=== PATIENT | female | born 1990 | race Caucasian/White ===

== ENCOUNTER 2018-03-27 15:45 | Inpatient (IN) | payer OTHER ==
[2018-03-27 17:14] LABS: HEMATOCRIT 33.6 % (36.0-47.0); HEMOGLOBIN 11.2 g/dl (12.0-15.5); MEAN CORPUSCULAR HEMOGLOBIN 31.3 pg (27.0-33.0); MEAN CORPUSCULAR HGB CONC 33.3 g/dl (32.0-36.5); MEAN CORPUSCULAR VOLUME 93.9 fl (80.0-96.0); PLATELET COUNT, AUTOMATED 190 10^3/uL (150-450); RED BLOOD COUNT 3.58 10^6/uL (4.00-5.40); RED CELL DISTRIBUTION WIDTH 15.6 % (11.5-14.5); WHITE BLOOD COUNT 9.3 10^3/uL (4.0-10.0)
[2018-03-27] MEDS: miSOPROStol 50 MCG 1/2 TAB (S0191) PO ×2 (17:24→21:45)
[2018-03-27] MEDS: ACETAMINOPHEN 325 MG TAB PO (17:25)
[2018-03-27 17:36] LABS: ALT/SGPT 15 U/L (12-78); AST/SGOT 21 U/L (7-37); BILIRUBIN,TOTAL 0.2 MG/DL (0.2-1.0); CREATININE FOR GFR 0.69 MG/DL (0.55-1.30); GLOMERULAR FILTRATION RATE > 60.0 (>60); LDH LACTATE DEHYDROGENASE 234 U/L (84-246)
[2018-03-27 17:40] LABS: CREATININE,RANDOM URINE 22.5 MG/DL
[2018-03-27 17:40] LABS: TOTAL PROTEIN,RANDOM URINE 62.2 MG/DL (0.0-12.0)
[2018-03-27] MEDS ORDERED: zolPIDEM TARTRATE 10MG TAB PO (21:00)
[2018-03-28] MEDS ORDERED: FENTANYL 2MCG/ML ROPIVACAINE 0.2% IN 0.9% NACL 200ML IVBAG As Ordered (10:16)
[2018-03-28 10:39] LABS: HEMATOCRIT 34.3 % (36.0-47.0); HEMOGLOBIN 11.1 g/dl (12.0-15.5); MEAN CORPUSCULAR HEMOGLOBIN 30.3 pg (27.0-33.0); MEAN CORPUSCULAR HGB CONC 32.4 g/dl (32.0-36.5); MEAN CORPUSCULAR VOLUME 93.7 fl (80.0-96.0); PLATELET COUNT, AUTOMATED 171 10^3/uL (150-450); RED BLOOD COUNT 3.66 10^6/uL (4.00-5.40); RED CELL DISTRIBUTION WIDTH 15.9 % (11.5-14.5)
[2018-03-28] MEDS: LR 1,000 ML IV ×3 (10:39→21:45)
[2018-03-28] MEDS ORDERED: NALOXONE INJ 0.4 MG/1 ML VIAL (J2310) IV ×3 (11:30→21:14)
[2018-03-28] MEDS ORDERED: LACTATED RINGER'S 1000 ML IV (11:30)
[2018-03-28] MEDS ORDERED: FENTANYL/ROPIVACAINE/NACL BAG 200 ML EPIDURAL (11:30)
[2018-03-28] MEDS ORDERED: EPIDURAL/PCA KEYS XX (11:30)
[2018-03-28] MEDS ORDERED: diphenhydrAMINE INJ 50MG/ML VIAL (J1200) IV (11:30)
[2018-03-28] MEDS ORDERED: REFRIGERATOR IV KEYS XX (11:30)
[2018-03-28] MEDS ORDERED: ePHEDrine SULFATE 25 MG/5 ML(5MG/ML) SYRINGE IV (11:30)
[2018-03-28] MEDS: EPIDURAL COMMENT XX (11:35)
[2018-03-28] MEDS: OXYTOCIN DRIP 30 UNITS in APPROPRIATE DILUENT 1 EA IV ×2 (11:37→21:19)
[2018-03-28] MEDS: ONDANSETRON 4MG/2ML VIAL (J2405) IV (15:53)
[2018-03-28] MEDS ORDERED: AZITHROMYCIN INJ 500 MG, VIAL MATE ADAPTER 1 EACH in D5W 250 ML IV (19:30)
[2018-03-28] MEDS ORDERED: BICITRA 30ML SOLN UDC PO (19:45)
[2018-03-28] MEDS ORDERED: ONDANSETRON 4MG/2ML VIAL (J2405) As Ordered (20:26)
[2018-03-28] MEDS ORDERED: MORPHINE PRES-FREE INJ 10 MG/10 ML VIAL (J2274) As Ordered (20:26)
[2018-03-28] MEDS ORDERED: OXYTOCIN INJ 10 UNITS/ML VIAL (J2590) As Ordered (20:26)
[2018-03-28] MEDS ORDERED: dexameTHASONE 4 MG/ML 1ML VIAL (J1100) As Ordered (20:26)
[2018-03-28] MEDS ORDERED: LIDOCAINE 2% W/EPIN INJ 20ML **PRES FREE As Ordered (20:26)
[2018-03-28] MEDS ORDERED: KETOROLAC 60 MG/2 ML VIAL (J1885) As Ordered (20:26)
[2018-03-28] MEDS ORDERED: SODIUM BICARBONATE 8.4% INJ 50 ML SYRINGE As Ordered (20:26)
[2018-03-28 20:39] LABS: CORD GAS ABE V -10.3; CORD GAS HCO3 V 16.2 MEQ/L; CORD GAS O2 SAT V 47.9 %; CORD GAS PCO2 V 38.2 mmHg; CORD GAS PH V 7.244 UNITS; CORD GAS PO2 V 24.4 mmHg; CORD GAS SBC V 15.4 MEQ/L; CORD GAS TCO2 V 17.3 MEQ/L
[2018-03-28] MEDS ORDERED: METOCLOPRAMIDE INJ 10MG/2ML VIAL (J2765) IV (21:14)
[2018-03-28] MEDS ORDERED: NALBUPHINE HCL 10 MG/ML AMP (J2300) IV ×2 (21:14→21:45)
[2018-03-28] MEDS ORDERED: ONDANSETRON 4MG/2ML VIAL (J2405) IV ×3 (21:14→21:45)
[2018-03-28] MEDS ORDERED: PERCOCET 5MG/325MG TAB PO ×2 (21:30)
[2018-03-28] MEDS ORDERED: DOCUSATE SODIUM 100 MG CAP PO (21:30)
[2018-03-28] MEDS ORDERED: fentaNYL 100 MCG/2 ML INJECTION (J3010) IV (21:45)
[2018-03-29 00:42] LABS: HBSAG L&D NEGATIVE (NEGATIVE)
[2018-03-29] MEDS: KETOROLAC 30 MG/ML VIAL (J1885) IV ×2 (03:18→08:51)
[2018-03-29] MEDS: RHOGAM 300 MCG (1500 IU) INJ (J2790) IM (07:02)
[2018-03-29] MEDS: MEASLES,MUMPS,RUBELLA VACCINE INJ (MMR-II) (90707) SC (07:02)
[2018-03-29 07:58] LABS: HEMATOCRIT 29.9 % (36.0-47.0); HEMOGLOBIN 9.8 g/dl (12.0-15.5); MEAN CORPUSCULAR HEMOGLOBIN 31.3 pg (27.0-33.0); MEAN CORPUSCULAR HGB CONC 32.8 g/dl (32.0-36.5); MEAN CORPUSCULAR VOLUME 95.5 fl (80.0-96.0); PLATELET COUNT, AUTOMATED 181 10^3/uL (150-450); RED BLOOD COUNT 3.13 10^6/uL (4.00-5.40); RED CELL DISTRIBUTION WIDTH 16.4 % (11.5-14.5); WHITE BLOOD COUNT 14.1 10^3/uL (4.0-10.0)
[2018-03-29] MEDS: PRENATAL VITAMINS CHEWABLE TABLET PO (08:51)
[2018-03-29] MEDS ORDERED: IBUPROFEN 800 MG TAB As Ordered (14:55)
[2018-03-29] MEDS: IBUPROFEN 800 MG TAB PO ×2 (15:00→23:41)
[2018-03-29] MEDS ORDERED: PILL CRUSHER/CUTTER 1 EACH XX (15:00)
[2018-03-30] MEDS: PRENATAL VITAMINS CHEWABLE TABLET PO (07:48)
[2018-03-30] MEDS: IBUPROFEN 800 MG TAB PO ×3 (07:48→23:51)
[2018-03-31] MEDS: IBUPROFEN 800 MG TAB PO (06:47)
[2018-03-31] MEDS: PRENATAL VITAMINS CHEWABLE TABLET PO (08:37)
== END 2018-03-31 12:25 | disposition home or self-care (01) | DRG 773 ==
LOC: M LDI 15:45 → M OBS 03-28 23:05
PROC: 10D00Z1 Extraction of Products of Conception, Low, Open Approach (ICD-10-PCS; principal; 2018-03-28 19:50)
PROC: 3E0DXGC Introduction of Other Therapeutic Substance into Mouth and Pharynx, External Approach (ICD-10-PCS; 2018-03-28 19:50)
DX: O14.94 Unspecified pre-eclampsia, complicating childbirth (principal); Z37.0 Single live birth; Z3A.37 37 weeks gestation of pregnancy; O32.4XX0 Maternal care for high head at term, not applicable or unspecified

== ENCOUNTER → 2019-05-10 | Outpatient (CLI) | payer OTHER ==
[~2019-05-10] MED LIST: COLA100C5 PO; IBUP-1114 PO; LEVOTAB10 PO; OXYC1TAB23 PO; PRENTAB9 PO; TUMS500C PO
== END ==
LOC: M LAB 10:06
PROVIDERS: ATTEND Nurse Practitioner Women's Health
DX: L50.8 Other urticaria (principal); L29.9 Pruritus, unspecified

== ENCOUNTER → 2019-05-24 | Outpatient (CLI) | payer OTHER ==
[2019-05-24 10:04] LABS: BASO % 0.4 % (0.0-1.0); EOS # 0.1 10^3/uL (0.0-0.5); HEMATOCRIT 42.5 % (36.0-47.0); HEMOGLOBIN 13.9 g/dl (12.0-15.5); LYMPH # 2.1 10^3/uL (1.5-5.0); LYMPH % 31.1 % (24.0-44.0); MEAN CORPUSCULAR HEMOGLOBIN 30.6 pg (27.0-33.0); MEAN CORPUSCULAR HGB CONC 32.7 g/dl (32.0-36.5); MEAN CORPUSCULAR VOLUME 93.6 fl (80.0-96.0); MONO # 0.4 10^3/uL (0.0-0.8); MONO % 5.6 % (0.0-5.0); NEUTROPHILS # 4.1 10^3/uL (1.5-8.5); NEUTROPHILS % 61.6 % (36.0-66.0); PLATELET COUNT, AUTOMATED 306 10^3/uL (150-450); RED BLOOD COUNT 4.54 10^6/uL (4.00-5.40); WHITE BLOOD COUNT 6.7 10^3/uL (4.0-10.0)
[2019-05-24 10:32] LABS: ALBUMIN 3.5 GM/DL (3.2-5.2); ALT/SGPT 13 U/L (12-78); BILIRUBIN,TOTAL 0.3 MG/DL (0.2-1.0); BLOOD UREA NITROGEN 13 MG/DL (7-18); CALCIUM LEVEL 8.6 MG/DL (8.5-10.1); CARBON DIOXIDE LEVEL 26 MEQ/L (21-32); CHLORIDE LEVEL 107 MEQ/L (98-107); CREATININE FOR GFR 0.83 MG/DL (0.55-1.30); FREE T4 1.02 NG/DL (0.76-1.46); GLOMERULAR FILTRATION RATE > 60.0 (>60); GLUCOSE, FASTING 84 MG/DL (70-100); IMMUNOGLOBULIN G 1220 MG/DL (681-1648); POTASSIUM SERUM 4.2 MEQ/L (3.5-5.1); SODIUM LEVEL 139 MEQ/L (136-145); TOTAL PROTEIN 7.4 GM/DL (6.4-8.2)
[2019-05-26 10:51] LABS: ESTRADIOL < 19.0 PG/ML; LUTEINIZING HORMONE 0.4 mIU/mL; PROLACTIN 5.3 NG/ML
[2019-05-26 10:52] LABS: FOLLICLE STIMULATING HORMONE 1.5 mIU/mL
== END ==
LOC: M LAB 09:03
PROVIDERS: ATTEND Physician Assistant
DX: L30.9 Dermatitis, unspecified (principal); N91.1 Secondary amenorrhea

== ENCOUNTER → 2023-06-11 | Outpatient (CLI) | payer OTHER ==
[2023-06-11 13:21] LABS: BASO % 0.6 % (0.0-1.0); EOS # 0.1 10^3/uL (0.0-0.5); EOS % 1.3 % (0.0-3.0); HEMATOCRIT 42.7 % (36.0-47.0); HEMOGLOBIN 13.7 g/dl (12.0-15.5); LYMPH # 2.3 10^3/uL (1.5-5.0); MEAN CORPUSCULAR HEMOGLOBIN 30.6 pg (27.0-33.0); MEAN CORPUSCULAR HGB CONC 32.1 g/dl (32.0-36.5); MEAN CORPUSCULAR VOLUME 95.5 fl (80.0-96.0); MONO # 0.3 10^3/uL (0.0-0.8); MONO % 4.6 % (2.0-8.0); NEUTROPHILS # 4.3 10^3/uL (1.5-8.5); NEUTROPHILS % 60.2 % (36.0-66.0); PLATELET COUNT, AUTOMATED 320 10^3/uL (150-450); RED BLOOD COUNT 4.47 10^6/uL (4.00-5.40); WHITE BLOOD COUNT 7.1 10^3/uL (4.0-10.0)
[2023-06-11 13:47] LABS: ALBUMIN 3.4 G/DL (3.2-5.2); ALKALINE PHOSPHATASE 55 U/L (46-116); ALT/SGPT 12 U/L (7.0-40); AST/SGOT 15 U/L (<34); BILIRUBIN,TOTAL 0.2 MG/DL (0.3-1.2); BLOOD UREA NITROGEN 17 MG/DL (9-23); CALCIUM LEVEL 8.8 MG/DL (8.5-10.1); CARBON DIOXIDE LEVEL 25 MMOL/L (20-31); CHLORIDE LEVEL 110 MMOL/L (98-107); CREATININE FOR GFR 0.82 MG/DL (0.55-1.30); GLOMERULAR FILTRATION RATE > 60.0 (>60); GLUCOSE, FASTING 86 MG/DL (60-100); POTASSIUM SERUM 4.7 MMOL/L (3.5-5.1); SODIUM LEVEL 141 MMOL/L (136-145); TOTAL PROTEIN 6.7 G/DL (5.7-8.2)
[2023-06-11 15:07] LABS: THYROID PEROXIDASE ANTIBODY 42 U/ML (<60.0)
[2023-06-13 00:07] LABS: ANA (HEP2) Negative (.)
== END ==
LOC: M WUC 09:03
PROVIDERS: ATTEND Allergy & Immunology
DX: L29.9 Pruritus, unspecified (principal); R53.81 Other malaise